=== PATIENT | female | born 1980 | race Caucasian/White ===

== ENCOUNTER 2017-09-18 20:20 | Emergency (ER) | payer OTHER, SELFPAY ==
--- NOTE | 2017-09-18 20:57 | RAD ---
AP CHEST: History: Cough, difficulty breathing. Comparison: None. IMPRESSION: No acute cardiopulmonary abnormality. COMMENTS: Lungs are clear. Cardiomediastinal silhouette is within normal limits. No acute osseous abnormality. POS: [facility]
[2017-09-18] MEDS ORDERED: Naproxen 500 MG TAB ONE (22:34)
== END 2017-09-18 23:33 | disposition home or self-care (01) ==
LOC: ERS 20:20
DX: J06.9 Acute upper respiratory infection, unspecified (principal); R06.2 Wheezing
CPT/HCPCS: 71010; 94640; J7620

== ENCOUNTER 2018-05-12 04:44 | Emergency (ER) | payer OTHER, SELFPAY ==
[2018-05-12] MEDS ORDERED: Promethazine HCl 25 MG/ML VIAL ONE (05:00)
[2018-05-12] MEDS ORDERED: diphenhydrAMINE 50 MG/ML VIAL ONE ×2 (05:00→05:56)
[2018-05-12 05:41] LABS: ALT (SGPT) 12 U/L (8-55); AST (SGOT) 16 U/L (5-34); Alkaline Phosphatase 51 U/L (40-150); Anion Gap 8 mmol/L (10-20); BUN (Urea Nitrogen) 15 mg/dL (7.0-18.7); Bilirubin, Total 0.5 mg/dL (0.2-1.2); Calc. Creatinine Clearance 0 mL/min (70-130); Calcium 8.9 mg/dL (7.8-10.44); Carbon Dioxide 26 mmol/L (22-29); Chloride 110 mmol/L (98-107); Estimated GFR-MDRD Greater than 90; Globulin 2.7 g/dL (2.4-3.5); Glucose 102 mg/dL (70-105); Potassium 3.9 mmol/L (3.5-5.1); Protein, Total 6.7 g/dL (6.0-8.3); Sodium 140 mmol/L (136-145)
[2018-05-12 05:46] LABS: CKMB 1.3 ng/mL (0-6.6); Troponin I Less than 0.010 ng/mL (< 0.028)
[2018-05-12 05:47] LABS: #Basophils 0.1 thou/uL (0.0-0.2); #Eosinphils 0.1 thou/uL (0.0-0.7); #Lymphocytes 1.7 thou/uL (1.20-3.40); #Monocytes 0.6 thou/uL (0.11-0.59); #Neutrophils 1.6 thou/uL (1.40-6.50); %Basophils 1.4 % (0.0-1.0); %Eosinophils 3.6 % (0.0-10.0); %Lymphocytes 42.3 % (21.0-51.0); %Monocytes 13.4 % (0.0-10.0); %Neutrophils 39.4 % (42.0-75.0); Hemoglobin 8.7 g/dL (12.0-16.0); MDiff Complete? YES; Mean Corpuscular HGB CONC 31.4 g/dL (32.0-36.0); Mean Corpuscular Hemoglobin 20.7 pg (27.0-31.0); Mean Corpuscular Volume 65.8 fL (78.0-98.0); Mean Platelet Volume 9.1 fL (7.4-10.4); Microcytosis SLIGHT = 6-15 cells (100X) (0-5/hpf); PLT Morphology Comment Appears Decreased; Platelet Count 115 thou/uL (130-400); RBC Distribution Width 18.7 % (11.5-14.5); Red Blood Cell (RBC) Count 4.23 mill/uL (4.20-5.40); White Blood Cell (WBC) Count 4.1 thou/uL (4.8-10.8)
[2018-05-12] MEDS ORDERED: Famotidine 20 MG TAB ONE (05:57)
[2018-05-12 06:28] LABS: Iron 16 ug/dL (50-170); Iron Binding Capacity, Total 526 mcg/dL (265-497)
[2018-05-12] MEDS ORDERED: methylPREDNISolone Sod Succ/PF 125 MG/2 ML VIAL ONE (07:26)
[2018-05-12] MEDS ORDERED: MAGNESIUM IVPB SCH (07:45)
[2018-05-12] MEDS ORDERED: ADMIXTURE FEE IVPB SCH (07:45)
[2018-05-12] MEDS ORDERED: NS IVPB SCH (07:45)
== END 2018-05-12 08:46 | disposition home or self-care (01) ==
LOC: ERS 04:44
DX: G43.909 Migraine, unspecified, not intractable, without status migrainosus (principal); D50.9 Iron deficiency anemia, unspecified
CPT/HCPCS: 36415; 80053; 82553; 82728; 83540; 83550; 84484; 85025; 93005; 96365; 96367; 96375; 96376; J1200; J2550; J2930; J3475

== ENCOUNTER 2018-07-14 17:25 | Emergency (ER) | payer SELFPAY | END 2018-07-14 19:06 | disposition home or self-care (01) | LOC: ERS 17:25 | DX: S40.012A Contusion of left shoulder, initial encounter (principal); S40.011A Contusion of right shoulder, initial encounter; R51 Headache; V64.5XXA Driver of heavy transport vehicle injured in collision with heavy transport vehicle or bus in traffic accident, initial encounter | CPT/HCPCS: 99283 ==

== ENCOUNTER 2018-12-24 08:18 | Emergency (ER) | payer SELFPAY ==
[2018-12-24 09:21] LABS: Bilirubin Negative (Negative); Blood, Urine Negative (Negative); Clarity CLEAR (Clear); Glucose, Urine (Dipstick) Negative (Negative); Leukocyte Negative (Negative); Nitrite Negative (Negative); Protein, Urine (Dipstick) Negative (Neg-Trace); Specific Gravity, Urine 1.011 (1.002-1.036)
[2018-12-24 09:22] LABS: Pregnancy Test - Urine (BHCG) Negative (Negative); Pregu Control Background? CLEAR/WHITE (CLR/WHITE); Pregu Control Bar Appear? YES (CONTROL BAR); Specific Gravity 1.011 (1.002-1.036)
[2018-12-26 23:40] LABS: Chlamydia by PCR Not Detected (NotDetected); GC by PCR Not Detected (NotDetected)
== END 2018-12-24 09:40 | disposition home or self-care (01) ==
LOC: ERS 08:18
DX: N89.8 Other specified noninflammatory disorders of vagina (principal); F32.9 Major depressive disorder, single episode, unspecified; Z87.891 Personal history of nicotine dependence
CPT/HCPCS: 81003; 81025; 87480; 87491; 87510; 87591; 87660; 99284

== ENCOUNTER 2019-05-14 20:56 | Emergency (ER) | payer BC ==
[~2019-05-14 20:56] MED LIST: ISOVUE-370 76%-LOCM 1 ML ONE
[2019-05-14 21:33] LABS: #Eosinphils 0.5 thou/uL (0.0-0.7); #Lymphocytes 1.6 thou/uL (1.20-3.40); #Monocytes 0.7 thou/uL (0.11-0.59); #Neutrophils 4.8 thou/uL (1.40-6.50); %Basophils 0.3 % (0.0-1.0); %Eosinophils 7.1 % (0.0-10.0); %Lymphocytes 20.8 % (21.0-51.0); %Monocytes 8.5 % (0.0-10.0); %Neutrophils 63.3 % (42.0-75.0); Hemoglobin 10.3 g/dL (12.0-16.0); Mean Corpuscular HGB CONC 30.1 g/dL (32.0-36.0); Mean Corpuscular Hemoglobin 20.6 pg (27.0-31.0); Mean Corpuscular Volume 68.2 fL (78.0-98.0); Mean Platelet Volume 9.4 fL (7.4-10.4); Platelet Count 309 thou/uL (130-400); RBC Distribution Width 22.8 % (11.5-14.5); White Blood Cell (WBC) Count 7.6 thou/uL (4.8-10.8)
[2019-05-14 21:45] LABS: Bilirubin Negative (Negative); Blood, Urine Negative (Negative); Clarity Clear (Clear); Glucose, Urine (Dipstick) Normal (Negative); Leukocyte Negative Leu/uL (Negative); Nitrite Negative (Negative); Protein, Urine (Dipstick) 20 mg/dL (Neg-Trace); Urobilinogen 3 mg/dL (Less than 2)
[2019-05-14 21:46] LABS: Pregnancy Test - Urine (BHCG) Negative (Negative); Pregu Control Background? CLEAR/WHITE (CLR/WHITE); Pregu Control Bar Appear? YES (CONTROL BAR); Specific Gravity 1.038 (1.002-1.036)
[2019-05-14 21:54] LABS: ALT (SGPT) 10 U/L (8-55); AST (SGOT) 16 U/L (5-34); Albumin 4.4 g/dL (3.5-5.0); Alkaline Phosphatase 66 U/L (40-150); Anion Gap 15 mmol/L (10-20); BUN (Urea Nitrogen) 18 mg/dL (7.0-18.7); Bilirubin, Total 0.5 mg/dL (0.2-1.2); Calc. Creatinine Clearance 0 mL/min (70-130); Calcium 9.4 mg/dL (7.8-10.44); Carbon Dioxide 21 mmol/L (22-29); Chloride 104 mmol/L (98-107); Estimated GFR-MDRD 90; Globulin 3.5 g/dL (2.4-3.5); Glucose 96 mg/dL (70-105); Lipase 22 U/L (8-78); Potassium 3.8 mmol/L (3.5-5.1); Protein, Total 7.9 g/dL (6.0-8.3); Sodium 136 mmol/L (136-145)
[2019-05-14] MEDS ORDERED: Morphine 4 MG/ML VIAL ONE ×2 (22:31→23:37)
[2019-05-14] MEDS ORDERED: Ondansetron PF 4 MG/2 ML Vial ONE (23:01)
--- NOTE | 2019-05-14 23:31 | ULT ---
PELVIC ULTRASOUND: 05/14/2019 HISTORY: Right lower quadrant pain. COMPARISON: None. TECHNIQUE: Multiplanar cordero-scale sonographic imaging of the pelvis obtained with transabdominal imaging. The o varies are assessed with color-flow and spectral analysis. FINDINGS: The uterus measures 8.4 x 3.9 x 4.6 cm. The left ovary measures 2.4 x 1.8 x 1.5 cm, and the right ov harshal measures 3.4 x 2.8 x 3.2 cm. The ovaries demonstrate normal blood flow without evidence for mass . No free fluid in the pelvis. The endometrial stripe is not well defined and thus is difficult to measure. There is no evidence fo r endometrial thickening, however. IMPRESSION: Grossly unremarkable pelvic ultrasound. POS: [facility]
--- NOTE | 2019-05-15 00:12 | CT ---
CT ABDOMEN AND PELVIS: 05/14/2019 HISTORY: Right lower quadrant pain. COMPARISON: None. TECHNIQUE: Axial CT imaging at 5 mm intervals, from the lung bases through the pubic symphysis, with IV and oral contrast. Coronal reformatted imaging obtained. FINDINGS: The imaged lung bases are unremarkable. No free intraperitoneal air or fluid is seen. The liver, spleen, gallbladder, pancreas, adrenal glands, and kidneys demonstrate no acute findings. Small, nonspecific hypodensity within the spleen noted, measuring 9-10 mm. Postoperative suture lance e associated with the stomach and proximal small bowel. There is significant stool within the colon, particularly in the region of the sigmoid colon and desc ending colon. The appendix is unremarkable. There is no evidence for bowel obstruction. Vascular structures of th e abdomen/pelvis appear grossly unremarkable. There is no lymphadenopathy seen within the abdomen/pe lvis. No worrisome lytic or blastic bone lesions are identified. IMPRESSION: No acute findings. POS: [facility]
[2019-05-15] MEDS ORDERED: Thiamine 100 MG TAB ONE (00:18)
== END 2019-05-15 01:30 | disposition home or self-care (01) ==
LOC: ERS 20:56
DX: K59.00 Constipation, unspecified (principal); R10.31 Right lower quadrant pain; F32.9 Major depressive disorder, single episode, unspecified; F90.9 Attention-deficit hyperactivity disorder, unspecified type; Z87.891 Personal history of nicotine dependence; Z79.899 Other long term (current) drug therapy
CPT/HCPCS: 36415; 74177; 76856; 80053; 81003; 81025; 83690; 85025; 93976; 96361; 96372; 96374; J2270; J2405; J3411; Q9966

== ENCOUNTER 2019-12-04 09:44 | Emergency (ER) | payer SELFPAY ==
[2019-12-04 11:10] LABS: Bilirubin Negative (Negative); Blood, Urine Negative (Negative); Clarity Clear (Clear); Glucose, Urine (Dipstick) Normal (Negative); Leukocyte Negative Leu/uL (Negative); Nitrite Negative (Negative); Protein, Urine (Dipstick) Negative (Neg-Trace); Urobilinogen Normal mg/dL (Less than 2)
[2019-12-04 11:13] LABS: Pregnancy Test - Urine (BHCG) Negative (Negative); Pregu Control Background? CLEAR/WHITE (CLR/WHITE); Pregu Control Bar Appear? YES (CONTROL BAR); Specific Gravity 1.024 (1.002-1.036)
[2019-12-04 12:27] LABS: #Eosinphils 0.1 thou/uL (0.0-0.7); #Lymphocytes 1.5 thou/uL (1.20-3.40); #Monocytes 0.6 thou/uL (0.11-0.59); #Neutrophils 2.6 thou/uL (1.40-6.50); %Basophils 0.1 % (0.0-1.0); %Eosinophils 2.5 % (0.0-10.0); %Lymphocytes 32.1 % (21.0-51.0); %Monocytes 11.7 % (0.0-10.0); %Neutrophils 53.5 % (42.0-75.0); Hemoglobin 8.4 g/dL (12.0-16.0); Mean Corpuscular HGB CONC 29.6 g/dL (32.0-36.0); Mean Corpuscular Volume 67.6 fL (78.0-98.0); Mean Platelet Volume 9.3 fL (7.4-10.4); Platelet Count 220 thou/uL (130-400); RBC Distribution Width 16.9 % (11.5-14.5); Red Blood Cell (RBC) Count 4.18 mill/uL (4.20-5.40); White Blood Cell (WBC) Count 4.8 thou/uL (4.8-10.8)
[2019-12-04 12:43] LABS: Hypochromia MODERATE=16-30 cells (100X) (0-5/hpf); MDiff Complete? YES; Microcytosis MODERATE=15-30 cells (100X) (0-5/hpf); Ovalocytes MODERATE= 6-15 cells (100X) (0-1/hpf); Platelet Morphology Comment Appears Adequate; Polychromasia SLIGHT = 2-3 cells (100X) (0-2/hpf); Reflex for Review?? NO
[2019-12-04 12:49] LABS: ALT (SGPT) 9 U/L (8-55); AST (SGOT) 14 U/L (5-34); Albumin 3.9 g/dL (3.5-5.0); Alkaline Phosphatase 63 U/L (40-110); Anion Gap 10 mmol/L (10-20); BUN (Urea Nitrogen) 12 mg/dL (7.0-18.7); Bilirubin, Total 0.3 mg/dL (0.2-1.2); Calc. Creatinine Clearance 0 mL/min (70-130); Calcium 8.4 mg/dL (7.8-10.44); Carbon Dioxide 24 mmol/L (22-29); Chloride 107 mmol/L (98-107); Estimated GFR-MDRD Greater than 90; Globulin 2.6 g/dL (2.4-3.5); Glucose 87 mg/dL (70-105); Potassium 4.3 mmol/L (3.5-5.1); Protein, Total 6.5 g/dL (6.0-8.3); Sodium 137 mmol/L (136-145)
[2019-12-05 23:42] LABS: Chlamydia by PCR Not Detected (NotDetected); GC by PCR Not Detected (NotDetected)
== END 2019-12-04 14:06 | disposition home or self-care (01) ==
LOC: ERS 09:44
DX: N76.0 Acute vaginitis (principal); F32.9 Major depressive disorder, single episode, unspecified; D64.9 Anemia, unspecified; Z87.891 Personal history of nicotine dependence; G43.909 Migraine, unspecified, not intractable, without status migrainosus
CPT/HCPCS: 36415; 80053; 81003; 81025; 84443; 85025; 87480; 87491; 87510; 87591; 87660; 93005

== ENCOUNTER 2020-06-14 15:39 | Inpatient (IN) | payer BC, OTHER ==
[2020-06-14 15:58] LABS: #Basophils 0.1 thou/uL (0.0-0.2); #Eosinphils 0.3 thou/uL (0.0-0.7); #Lymphocytes 2.3 thou/uL (1.20-3.40); #Monocytes 0.6 thou/uL (0.11-0.59); #Neutrophils 3.7 thou/uL (1.40-6.50); %Basophils 1.2 % (0.0-1.0); %Eosinophils 3.8 % (0.0-10.0); %Monocytes 8.6 % (0.0-10.0); %Neutrophils 53.4 % (42.0-75.0); Hemoglobin 15.2 g/dL (12.0-16.0); Mean Corpuscular HGB CONC 35.1 g/dL (32.0-36.0); Mean Corpuscular Hemoglobin 33.6 pg (27.0-31.0); Mean Corpuscular Volume 95.7 fL (78.0-98.0); Mean Platelet Volume 9.3 fL (7.4-10.4); Platelet Count 193 thou/uL (130-400); RBC Distribution Width 11.1 % (11.5-14.5); Red Blood Cell (RBC) Count 4.53 mill/uL (4.20-5.40); White Blood Cell (WBC) Count 6.9 thou/uL (4.8-10.8)
[2020-06-14 16:03] LABS: BHCG - Serum Negative (NEGATIVE); Pregs Control Background? CLEAR/WHITE (CLR/WHITE); Pregs Control Bar Appear? YES (CONTROL BAR)
[2020-06-14 16:17] LABS: ALT (SGPT) 20 U/L (8-55); AST (SGOT) 20 U/L (5-34); Albumin 4.3 g/dL (3.5-5.0); Alkaline Phosphatase 81 U/L (40-110); Anion Gap 9 mmol/L (10-20); BUN (Urea Nitrogen) 10 mg/dL (7.0-18.7); Bilirubin, Total 0.3 mg/dL (0.2-1.2); Calc. Creatinine Clearance 0 mL/min (70-130); Calcium 8.9 mg/dL (7.8-10.44); Carbon Dioxide 27 mmol/L (22-29); Chloride 107 mmol/L (98-107); Estimated GFR-MDRD 71; Glucose 154 mg/dL (70-105); Potassium 3.8 mmol/L (3.5-5.1); Protein, Total 7.3 g/dL (6.0-8.3); Sodium 139 mmol/L (136-145)
[2020-06-14 17:20] LABS: Bilirubin Negative (Negative); Blood, Urine Negative (Negative); Clarity Clear (Clear); Glucose, Urine (Dipstick) Normal (Negative); Ketone, Urine Negative (Negative); Leukocyte Negative Leu/uL (Negative); Nitrite Negative (Negative); Protein, Urine (Dipstick) Negative (Neg-Trace); Specific Gravity, Urine 1.017 (1.002-1.036); Urobilinogen 3 mg/dL (Less than 2)
[2020-06-14 17:34] LABS: Amphetamine Not Detected (NotDetected); Barbiturates Screen Not Detected (NotDetected); Benzodiazepine Screen Not Detected (NotDetected); Cocaine Metabolite Screen Not Detected (NotDetected); Medtox Control Line Valid? VALID (VALID); Medtox Reader # READER 4; Methadone Not Detected (NotDetected); Methamphetamine Not Detected (NotDetected); Opiate Screen Not Detected (NotDetected); Oxycodone Screen Not Detected (NotDetected); Phencyclidine (PCP) Not Detected (NotDetected); THC/Cannabinoid Screen Not Detected (NotDetected); Tricyclic Screen Not Detected (NotDetected)
--- NOTE | 2020-06-14 18:36 | CT ---
CT BRAIN 06/14/20 PROVIDED CLINICAL HISTORY: Altered mental status. FINDINGS: The ventricular system appears normal in size and morphology. There is no evidence for intracranial h emorrhage or mass effect. The extracranial soft tissues and osseous structures demonstrate an unremar kable CT appearance. IMPRESSION: No evidence for intracranial hemorrhage or mass effect. POS: [facility]
[2020-06-14] MEDS ORDERED: Morphine 4 MG/ML VIAL ONE (21:28)
[2020-06-15] MEDS ORDERED: Ondansetron PF 4 MG/2 ML Vial IVP PRN ×2 (00:08→00:17)
[2020-06-15] MEDS ORDERED: Ondansetron ODT 4 MG TAB SL PRN (00:08)
[2020-06-15] MEDS ORDERED: Enalaprilat Dihydrate 1.25 MG/ML VIAL SLOW IVP PRN (00:13)
[2020-06-15] MEDS ORDERED: Labetalol HCl 100 MG/20 ML VIAL SLOW IVP PRN (00:13)
[2020-06-15] MEDS ORDERED: hydrALAZINE 20 MG/ML VIAL SLOW IVP PRN (00:13)
[2020-06-15] MEDS ORDERED: Sodium Chloride 0.9% 1,000 ML IV SCH (00:15)
[2020-06-15] MEDS ORDERED: Acetaminophen 325 MG TAB PO PRN (00:17)
[2020-06-15] MEDS ORDERED: Promethazine HCl 12.5 MG in Sodium Chloride 0.9% 50 ML IVPB PRN (00:17)
--- NOTE | 2020-06-15 00:23 | PDOC.HHP ---
Hospitalist HPI - History of Present Illness Syncope History of Present Illness: Patient is a 39 year old female with PMH migraines, gastric bypass, bipolar disorder who presented to ED for vaginal bleeding, syncope, global weakness but especially in LLE. She reports signficant weakness worsening over time, especially in the left leg, she is weak and cannot keep extremities elevated for long, cannot keep eyes open, unable to roll over without assistance. She has seen Dr Wells for this and had MRI last week of brain. She had syncopal episode today in car on way over here. She reports vaginal bleeding x 1 day, 10-12 large clots passed and ED attempted to examine but unable to see much due to blood. She reports periods are becoming more severe every month. She was dizzy yesterday. She also reports back pain, partially relieved by morphine in ED. In ED, lab workup unremarkable, CT head without acute findings, old records here reveal MRI brain on 06/05/[address] Wells which revealed T1 marrow signal hypointensity in calvarium concerning for marrow infiltrative process. Dr Gray called and will consult with us, recommended MRI of the whole spine which has been ordered. Hospitalist ROS - Review of Systems Constitutional: denies: fever, chills, sweats, weakness, malaise, other Eyes: denies: pain, vision change, conjunctivae inflammation, eyelid inflammation, redness, other ENT: denies: ear pain, ear discharge, nose pain, nose discharge, nose congestion , mouth pain, mouth swelling, throat pain, throat swelling, other Respiratory: denies: cough, dry, shortness of breath, hemoptysis, SOB with excertion, pleuritic pain, sputum, wheezing, other Cardiovascular: denies: chest pain, palpitations, orthopnea, paroxysmal noc. dyspnea, edema, light headedness, other Gastrointestinal: reports: other (vaginal bleeding) Musculoskeletal: reports: back pain. denies: neck pain, shoulder pain, arm pain , hand pain, leg pain, foot pain, other Skin: denies: rash, lesions, sneha, bruising, other Neurological: reports: weakness, numbness, other (lle weakness, syncope, global weakness, loss sensation LLE, cannot keep eyelids open and weak) All other systems reviewed; all pertinent +/- noted in HPI/Subj - Medication Medications: Strattera Sat Jun 14, 2020 16:15 ROSALIA Shelby Nicole capsule : Strength - 10 mg : ORAL Patient Dose: UNKNOWN. LaMICtal Sat Jun 14, 2020 16:15 ROSALIA Shelby Nicole tablet : Strength - 100 mg : ORAL Patient Dose: UNKNOWN. sertraline Sat Jun 14, 2020 16:16 ROSALIA Shelby Nicole tablet : Strength - 100 mg : ORAL Patient Dose: 100 mg Oral once a day. Hospitalist History - Past Medical History Other Medical History: MIGRAINES. - Past Surgical History Other Surgical History: GASTRIC BYPASS (2015), BREAST AUGMENTATION (2004), TONSILECTOMY (2008). - Family History Family History: reports: no pertinent history - Social History Smoking Status: Former smoker Alcohol: reports: Rare Drugs: reports: none - Exam General Appearance: NAD, awake alert Eye: PERRL, anicteric sclera ENT: normocephalic atraumatic, no oropharyngeal lesions, moist mucosa Neck: supple, symmetric, no JVD, no thyromegaly, no lymphadenopathy, no carotid bruit Heart: RRR, no murmur, no gallops, no rubs, normal peripheral pulses Respiratory: CTAB, no wheezes, no rales, no ronchi, normal chest expansion, no tachypnea, normal percussion Gastrointestinal: soft, non-tender, non-distended, normal bowel sounds, no palpable masses, no hepatomegaly, no splenomegaly, no bruit Extremities: no cyanosis, no clubbing, no edema Skin: normal turgor, no lesions, no rashes Neurological - other findings: global weakness, 2-3/5 strength in all extremities, sensory reduced LLE Musculoskeletal - other findings: some early contractures in feet Psychiatric: normal affect, normal behavior, A&O x 3 Hospitalist Results - Labs Result Diagrams: 06/14/20 15:50 06/14/20 15:50 Lab results: WBC 6.9 thou/uL (4.8-10.8) 06/14/20 15:50 Hgb 15.2 g/dL (12.0-16.0) 06/14/20 15:50 Hct 43.4 % (36.0-47.0) 06/14/20 15:50 MCV 95.7 fL (78.0-98.0) 06/14/20 15:50 Plt Count 193 thou/uL (130-400) 06/14/20 15:50 Neutrophils % 53.4 % (42.0-75.0) 06/14/20 15:50 Sodium 139 mmol/L (136-145) 06/14/20 15:50 Potassium 3.8 mmol/L (3.5-5.1) 06/14/20 15:50 Chloride 107 mmol/L (98-107) 06/14/20 15:50 Carbon Dioxide 27 mmol/L (22-29) 06/14/20 15:50 BUN 10 mg/dL (7.0-18.7) 06/14/20 15:50 Creatinine 0.88 mg/dL (0.6-1.1) 06/14/20 15:50 Glucose 154 mg/dL (70-105) H 06/14/20 15:50 Calcium 8.9 mg/dL (7.8-10.44) 06/14/20 15:50 Total Bilirubin 0.3 mg/dL (0.2-1.2) 06/14/20 15:50 AST 20 U/L (5-34) 06/14/20 15:50 ALT 20 U/L (8-55) 06/14/20 15:50 Alkaline Phosphatase 81 U/L (40-110) 06/14/20 15:50 Troponin I 0.010 ng/mL (< 0.028) 06/14/20 15:50 Serum Total Protein 7.3 g/dL (6.0-8.3) 06/14/20 15:50 Albumin 4.3 g/dL (3.5-5.0) 06/14/20 15:50 Urine Ketones Negative mg/dL (Negative) 06/14/20 17:05 Urine Blood Negative (Negative) 06/14/20 17:05 Urine Nitrite Negative (Negative) 06/14/20 17:05 Ur Leukocyte Esterase Negative Wing/uL (Negative) 06/14/20 17:05 Additional comment: VITAL SIGNS Sat Jun 14, 2020 22:36 ROSALIA Shelby Nicole BP: 102/59 Pulse: 66 Resp: 18 Pain: 7 O2 sat: 98 on (Room Air) Time: 06/14/2020 22:36. labs, imaging report, ED documents reviewed Hospitalist H&P A/P - Plan Plan: Patient is a 39 year old female with PMH migraines, gastric bypass, bipolar disorder who presented to ED for vaginal bleeding, syncope, global weakness but especially in LLE. She reports signficant weakness worsening over time, especially in the left leg , she is weak and cannot keep extremities elevated for long, cannot keep eyes open, unable to roll over without assistance. She has seen Dr Wells for this and had MRI last week of brain. She had syncopal episode today in car on way over here. She reports vaginal bleeding x 1 day, 10-12 large clots passed and ED attempted to examine but unable to see much due to blood. She reports periods are becoming more severe every month. She was dizzy yesterday. She also reports back pain, partially relieved by morphine in ED. In ED, lab workup unremarkable, CT head without acute findings, old records here reveal MRI brain on 06/05/[address] Wells which revealed T1 marrow signal hypointensity in calvarium concerning for marrow infiltrative process. Dr Gray called and will consult with us, recommended MRI of the whole spine which has been ordered. patient story includes global weaknes, LLE most of all, unable to keep eyes open, weak, fainted, concerning for things such as MS, myasthenia gravis - admit to stroke unit - stroke order set - neurology consult placed - some basic nutrition labs and RPR/BUFFY sent, nutrition consult, check PO4 in AM as well as iron panel and peripheral smear - start statin, hold ASA and lovenox due to vaginal bleeding, SCD for DVt ppx # syncope - suspect due to neurologic exam and weakness, rule out causes as above, check echocardiogram # vaginal bleeding - noted, ED pelvic exam with bleeding and not able to visualize anything of significance, monitor here, will hold lovenox and ASA pending neurology workup - reports periods becoming more severe every month, will order coagulation labs and consider hematology consult in AM based on results # reported AKASH - will also order iron studies and a peripheral smear # bipolar disorder - continue home meds # history of gastric bypass - order diet consult, nutrition labs DVT ppx - SCD GI ppx full code
[2020-06-15] MEDS ORDERED: Aspirin Chewable 81 MG TAB PO SCH (00:30)
[2020-06-15] MEDS ORDERED: Lorazepam 2 MG/ML VIAL SLOW IVP PRN (00:38)
[2020-06-15] MEDS: Morphine 4 MG/ML VIAL SLOW IVP PRN ×4 (00:47→20:30)
[2020-06-15 01:11] VITALS: BMI 33.7
[2020-06-15 05:41] LABS: Iron 86 ug/dL (50-170); Iron Binding Capacity, Total 259 mcg/dL (265-497)
[2020-06-15 05:42] LABS: Anion Gap 10 mmol/L (10-20); BUN (Urea Nitrogen) 9 mg/dL (7.0-18.7); Calc. Creatinine Clearance 186 mL/min (70-130); Calcium 7.8 mg/dL (7.8-10.44); Carbon Dioxide 22 mmol/L (22-29); Cardiac Risk 4.9 (Less than 4.5); Chloride 112 mmol/L (98-107); Cholesterol 147 mg/dl (< 200 Desired); Estimated GFR-MDRD Greater than 90; Glucose 91 mg/dL (70-105); HDL Cholesterol 30 mg/dL (>60 Neg Risk); LDL Cholesterol, Calculated 81 mg/dL; Magnesium 1.9 mg/dL (1.6-2.6); Potassium 3.7 mmol/L (3.5-5.1); Sodium 140 mmol/L (136-145); Triglycerides 178 mg/dL (Less than 150)
[2020-06-15 05:44] LABS: Iron 87 ug/dL (50-170); Iron Binding Capacity, Total 260 mcg/dL (265-497); Phosphorus 2.6 mg/dL (2.3-4.7)
[2020-06-15 05:59] LABS: Syphilis Antibody Nonreactive (Nonreactive); Syphilis Antibody Index 0.03 S/CO (<1.00 Non-Reactive)
[2020-06-15 06:02] LABS: INR-International Normal Ratio 1.1; Prothrombin Time 13.9 sec (12.0-14.7)
[2020-06-15 06:03] LABS: PTT 36.3 sec (22.9-36.1)
[2020-06-15 06:07] LABS: Ferritin 97.19 ng/mL (10-291)
[2020-06-15] MEDS: HYDROcodone/Acetaminophen 5/325 mg Tablet PO PRN ×2 (06:13→12:31)
[2020-06-15 06:31] LABS: Band 5 % (5-11); Eosinophils 1 % (0-10); Hemoglobin 13.3 g/dL (12.0-16.0); Lymphocytes 38 % (21-51); MDiff Complete? YES; Mean Corpuscular HGB CONC 34.4 g/dL (32.0-36.0); Mean Corpuscular Hemoglobin 33.2 pg (27.0-31.0); Mean Corpuscular Volume 96.5 fL (78.0-98.0); Monocytes 5 % (0-10); Neutrophil 51 % (42-75); Platelet Count 153 thou/uL (130-400); RBC Distribution Width 11.1 % (11.5-14.5); Red Blood Cell (RBC) Count 4.01 mill/uL (4.20-5.40); White Blood Cell (WBC) Count 4.7 thou/uL (4.8-10.8)
[2020-06-15] MEDS ORDERED: lamoTRIgine 25 MG TAB PO SCH ×2 (09:00→14:00)
[2020-06-15] MEDS ORDERED: Enoxaparin Sodium 40 MG/0.4 ML SYRINGE SC SCH (09:00)
[2020-06-15] MEDS ORDERED: ATOMOXETINE HCL 25 MG PO SCH (09:00)
[2020-06-15] MEDS ORDERED: Aspirin 81 mg Enteric Coated Tablet PO SCH (09:00)
[2020-06-15] MEDS: Polyethylene Glycol 3350 17 GM Packet PO SCH (10:21)
--- NOTE | 2020-06-15 12:32 | MRI ---
Exam: Thoracic spine MRI with and without contrast HISTORY: Arm and leg weakness. COMPARISON: None. FINDINGS: Diffuse T1 and T2 marrow signal hypointensity of the thoracic vertebra. Thoracic spine vertebral body height is maintained. No fracture. There is no evidence of pathologic enhancement of the vertebral bodies. No significant STIR hyperintensity to suggest vertebral body edema or ligamentous injury. Visualized mediastinum, lung parenchyma and solid organs do not demonstrate any acute abnormality. Throughout the thoracic spine, no significant neural foraminal narrowing. T3-T4: Minimal posterior disc bulge. No significant central canal stenosis. T6-T7: Minimal posterior disc bulge. No significant central canal stenosis. T8-T9: Central disc herniation does deform the thecal sac. There is mass effect and deformity of the thoracic cord. No cord signal abnormality. Mild to moderate central canal stenosis. The thoracic cord has a normal size and signal intensity. No cord expansion. No cord malacia. No abno rmal T2 hyperintensity in the cord. Conus medullaris terminates at the inferior aspect of T12. IMPRESSION: 1. No cord signal abnormality. 2. Diffuse T1 and T2 marrow signal hypointensity. Correlate for anemia. No abnormal STIR hyperintensi ty or pathologic enhancement to suggest a malignant or marrow infiltrative process.. Transcribed Date/Time: 06/15/2020 1:02 PM
--- NOTE | 2020-06-15 12:37 | MRI ---
MRI lumbar spine noncontrast: HISTORY: Leg weakness. COMPARISON: None. FINDINGS: Patient refused to undergo the postcontrast images. T1 and T2 marrow signal hypointensity in the visualized distal thoracic and lumbar spine. Small heman gioma at T12 and L5. Vertebral body heights are maintained. No fracture. No significant STIR hyperintensity to suggest ligamentous injury or vertebral body edema. Sagittal images demonstrate a small T2 hyperintense focus along the right aspect of S2 suggesting a T arlov cyst. Visualized solid organs and paraspinal muscles do not demonstrate any signal abnormality. Conus medullaris terminates at the inferior aspect of T12. T12-L1:Adequate disc hydration. No posterior disc abnormality. No significant central canal stenosis or significant neural foraminal narrowing. L1-L2:Adequate disc hydration. No posterior disc abnormality. No significant central canal stenosis o r significant neural foraminal narrowing. L2-L3:Adequate disc hydration. No posterior disc abnormality. No significant central canal stenosis o r significant neural foraminal narrowing. L3-L4:Adequate disc hydration. No posterior disc abnormality. No significant central canal stenosis o r significant neural foraminal narrowing. L4-L5:Adequate disc hydration. Broad-based disc bulge minimally flattens the ventral thecal sac. Disc material abuts but does not obscure either traversing L4 nerve root. Minimal central canal stenosis. Mild bilateral foraminal narrowing. L5-S1:Adequate disc hydration. No posterior disc abnormality. There is bilateral facet hypertrophy. N o significant central canal stenosis. Mild bilateral neural foraminal narrowing. IMPRESSION: 1. Diffuse T1 and T2 marrow signal hypointensity without STIR hyperintensity. Anemia is favored, rath er than a marrow infiltrative process. 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 3. No significant central canal stenosis or significant neural foraminal narrowing throughout the lum bar spine. Transcribed Date/Time: 06/15/2020 1:06 PM
--- NOTE | 2020-06-15 12:47 | MRI ---
Exam: MRI cervical spine without contrast HISTORY: Arm and leg weakness.. COMPARISON: None. FINDINGS: Patient refused to have the postcontrast sequences done. T1 and T2 marrow signal hypointensity of the cervical vertebra likely due to anemia. No significant S TIR hyperintensity. No fracture. Visualized brain parenchyma, cervicomedullary junction, cervical cord and the upper thoracic cord hav e a normal size and signal intensity. C2-C3: Adequate disc hydration. No posterior disc abnormality. No significant central canal stenosis or significant neural foraminal narrowing. C3-C4: Adequate disc hydration. No posterior disc abnormality. No significant central canal stenosis or significant neural foraminal narrowing. C4-C5: Adequate disc hydration. No posterior disc abnormality. No significant central canal stenosis or significant neural foraminal narrowing. C5-C6: Adequate disc hydration. Broad-based disc bulge abuts the thecal sac. Subarachnoid space is ma intained. Mild central canal stenosis. Patent bilateral neural foramina. C6-C7: Broad-based disc bulge abuts the thecal sac. Subarachnoid space is maintained. Mild central ca nal stenosis. Patent bilateral neural foramina. C7-T1: Adequate disc hydration. No posterior disc abnormality. No significant central canal stenosis or significant neural foraminal narrowing. IMPRESSION: 1. No significant central canal stenosis or significant neural foraminal narrowing throughout the cer vical spine. 2. No cord signal abnormality. 3. T1 and T2 marrow signal hypointensity without STIR hyperintensity. Correlate for anemia. Transcribed Date/Time: 06/15/2020 1:17 PM
[2020-06-15 13:44] LABS: SARS-CoV-2 MS2 Positive; SARS-CoV-2 N Gene Negative; SARS-CoV-2 S Gene Negative; SARS-CoV-2 by NAA Not Detected (NotDetected); SARS-CoV-2 orf1ab Negative
--- NOTE | 2020-06-15 19:26 | CON ---
DATE OF CONSULTATION: 06/15/2020 CONSULTING PHYSICIAN: Hospitalist Service. 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 PLAN: Lumbar puncture to look for evidence of inflammation. HISTORY OF PRESENT ILLNESS: Ms. Robles is a 39-year-old woman with a past history of migraine headaches and bipolar disorder. She, of late, has been complaining of cognitive decline and was worried that she had dementia. Yesterday, she reports developing left-sided weakness and numbness. She feels like there is some weakness on the right side too, but is not as severe. It involves both the face, arm, and leg. She had an MRI of the brain, which was normal. MRI of the spinal axis including cervical, thoracic, and lumbar was unremarkable other than a small disk bulge at L5-S1. She is complaining of lower back pain. She denies any recent illness. She has not run any fever. PAST MEDICAL HISTORY: As noted above. ALLERGIES: NONE. SOCIAL HISTORY: Unremarkable. FAMILY HISTORY: Positive for dementia. MEDICATIONS: List was reviewed. REVIEW OF SYSTEMS: Ten-system review of systems is otherwise unremarkable. PHYSICAL EXAMINATION: VITAL SIGNS: Stable. She is afebrile. HEENT: Pupils are equal and reactive. Conjunctivae clear. Oropharynx clear. Cranium, normocephalic and atraumatic. NECK: Supple. No lymphadenopathy. EXTREMITIES: No cyanosis or edema. SKIN: Clear. ABDOMEN: Soft, nontender. NEUROLOGIC: She was alert and cooperative, she was tearful, but has clear fluent speech. Cranial nerves were intact other than subjective decreased sensation to touch on the left side of the face. 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 The tone appeared to be symmetric. Sensation was subjectively decreased on the left side. Plantar responses were downgoing bilaterally. Gait was not tested. No abnormal movements were seen. LABORATORY STUDIES: Reviewed. IMAGING STUDIES: EKG, normal sinus rhythm. SUMMARY: A middle-aged woman with acute subjective neurologic deficits, but nothing remarkable on imaging. There is a low probability of infectious process that might account for this. Spinal tap could be done tomorrow to rule this out. Otherwise, I do not have anything to offer. Job ID: [id number]
[2020-06-15] MEDS ORDERED: Atorvastatin Calcium 40 MG TAB PO SCH (21:00)
[2020-06-16 05:29] LABS: #Basophils 0.1 thou/uL (0.0-0.2); #Eosinphils 0.2 thou/uL (0.0-0.7); #Lymphocytes 1.9 thou/uL (1.20-3.40); #Monocytes 0.5 thou/uL (0.11-0.59); #Neutrophils 2.9 thou/uL (1.40-6.50); %Basophils 1.2 % (0.0-1.0); %Eosinophils 4.4 % (0.0-10.0); %Lymphocytes 33.5 % (21.0-51.0); %Monocytes 9.5 % (0.0-10.0); %Neutrophils 51.5 % (42.0-75.0); Mean Corpuscular HGB CONC 34.3 g/dL (32.0-36.0); Mean Corpuscular Hemoglobin 32.2 pg (27.0-31.0); Mean Corpuscular Volume 93.9 fL (78.0-98.0); Mean Platelet Volume 9.5 fL (7.4-10.4); Platelet Count 173 thou/uL (130-400); Red Blood Cell (RBC) Count 4.34 mill/uL (4.20-5.40); White Blood Cell (WBC) Count 5.6 thou/uL (4.8-10.8)
[2020-06-16 05:53] LABS: Anion Gap 14 mmol/L (10-20); BUN (Urea Nitrogen) 10 mg/dL (7.0-18.7); Calc. Creatinine Clearance 178 mL/min (70-130); Calcium 8.4 mg/dL (7.8-10.44); Carbon Dioxide 21 mmol/L (22-29); Chloride 107 mmol/L (98-107); Estimated GFR-MDRD Greater than 90; Glucose 86 mg/dL (70-105); Magnesium 1.9 mg/dL (1.6-2.6); Potassium 3.9 mmol/L (3.5-5.1); Sodium 138 mmol/L (136-145)
[2020-06-16] MEDS: Polyethylene Glycol 3350 17 GM Packet PO SCH (08:49)
[2020-06-16] MEDS ORDERED: lamoTRIgine 100 MG TAB PO SCH (09:00)
[2020-06-16 15:12] VITALS: TEMP 98.6
--- NOTE | 2020-06-16 17:29 | PDOC.HOSPP ---
- Subjective Encounter Date: 06/16/20 Encounter Time: 08:00 Subjective: no overnight events. this morning, feeling better overall, can wiggle toes but LLE weakness persists. Pending further evaluation by neurology and possible lumbar puncture - Objective Vital Signs & Weight: Vital Signs (12 hours) Temp Pulse Pulse Pulse Pulse Resp BP 06/16/20 15:11 98.6 F 75 17 06/16/20 11:42 98.5 F 76 16 06/16/20 10:06 120/77 06/16/20 08:59 77 91 79 115/73 06/16/20 08:04 98.2 F 67 13 BP BP BP Pulse Ox 06/16/20 15:11 133/86 97 06/16/20 11:42 154/90 H 95 06/16/20 10:06 06/16/20 08:59 124/78 123/88 06/16/20 08:04 127/76 96 Weight Admit Weight 215 lb 11.2 oz Weight 215 lb 11.2 oz I&O: 06/15/20 06/16/20 06/17/20 06:59 06:59 06:59 Intake Total 624 120 Balance 624 120 Result Diagrams: 06/16/20 05:01 06/16/20 05:01 Hospitalist ROS - Review of Systems Constitutional: denies: chills, sweats Eyes: denies: vision change Cardiovascular: denies: chest pain, palpitations Gastrointestinal: denies: nausea, vomiting Genitourinary: denies: dysuria, incontinence, hematuria Musculoskeletal: reports: back pain. denies: neck pain, leg pain, foot pain Neurological: reports: weakness, numbness. denies: incoordination, change in speech - Medication Medications: Active Medications Generic Name Dose Route Start Last Admin Trade Name Freq PRN Reason Stop Dose Admin Hydrocodone Bitart/Acetaminophen 1 tab 06/15/20 00:17 06/15/20 12:31 [place] 5/325 PO 1 tab Q4H PRN Administration Moderate Pain (4-6) Atorvastatin Calcium 40 mg 06/15/20 21:00 06/15/20 20:36 Lipitor PO Not Given HS NIKKIE Fluvoxamine Maleate 25 mg 06/15/20 09:00 06/16/20 08:48 Luvox PO 25 mg DAILY NIKKIE Administration Lamotrigine 100 mg 06/16/20 09:00 06/16/20 08:50 Lamictal PO 100 mg DAILY NIKKIE Administration Morphine Sulfate 4 mg 06/15/20 00:17 06/15/20 20:30 Morphine SLOW IVP 4 mg Q4H PRN Administration Moderate to Severe Pain (4-10) Polyethylene Glycol 17 gm 06/15/20 09:00 06/16/20 08:49 Miralax PO 17 gm DAILY NIKKIE Administration Sertraline HCl 100 mg 06/15/20 09:00 06/16/20 08:50 Zoloft PO 100 mg DAILY NIKKIE Administration - Exam General Appearance: NAD, awake alert Eye: PERRL, anicteric sclera Neck: no JVD Heart: RRR, no murmur, no gallops, no rubs Respiratory: CTAB, no wheezes, no rales, no ronchi Gastrointestinal: soft, non-tender, non-distended, normal bowel sounds Extremities: no edema Neurological - other findings: LLE 3/5, sensation intact throughout, dorsiflexion and plantar flexion 4/5 Psychiatric: normal affect, normal behavior, A&O x 3 Hosp A/P - Plan #LLE weakness -exam and imaging inconsistent with stroke or lumbar radiculopathy -per neurology, may be psychogenic; no indication for lumbar puncture -patient endorses some improvement in strength this morning
[2020-06-16 18:11] VITALS: BP 154/99
--- NOTE | 2020-06-17 03:56 | DIS ---
DATE OF ADMISSION: 06/14/2020 DATE OF DISCHARGE: 06/16/2020 HOSPITAL COURSE: Ms. Robles is a 39-year-old female with a medical history of migraines, gastric bypass, and recently diagnosed bipolar disorder, who presented with general weakness, especially in the left lower extremity. Complete stroke workup was negative. Neurology was consulted and suggested the pain might have a psychogenic component. In addition, after reviewing her medication list, some of her medications side effects involve muscle weakness. The patient was advised to review these medications with the prescribing physician as an outpatient considering her presentation and the absence of a more likely etiology. On the day of discharge, the patient's general weakness significantly improved. However, left lower extremity weakness persisted. She was discharged home with followup appointments with the primary care physician and Neurology in addition to home health and physical therapy. PHYSICAL EXAMINATION: VITAL SIGNS: Blood pressure 133/86, pulse 75, respiratory rate 17, oxygen saturation 97% on room air, and temperature 98.6. GENERAL: Lying comfortably in bed. Awake and alert. HEENT: Normocephalic and atraumatic. CARDIAC: Regular rate and rhythm. No murmurs, gallops, or rubs. She was in normal sinus rhythm throughout her inpatient stay based on telemetry. LUNGS: Clear to auscultation bilaterally. No wheezing, rales, or rhonchi. GI: Soft, nontender, and nondistended. Normal bowel sounds. NEUROLOGIC: Strength was 5/5 throughout upper and lower extremities with the exception of the left lower extremity. The patient able to raise her leg above the bed, but without resistance. Dorsiflexion and plantar flexion 4/5. Sensation to light touch intact. Straight leg test negative. PSYCHIATRIC: Proper mood and affect. Alert and oriented x3. MEDICATION LIST: New medications, no new medications. Modified medications, no modified medications. Discontinued medications, no discontinued medications. Continued medications; 1. Fluvoxamine. 2. Lamotrigine. 3. Sertraline. 4. Atomoxetine. Job ID: [id number]
[2020-06-17 13:56] LABS: ANA Symphony (Qualitative) Negative (Negative); ANA Symphony (Quantitative) 0.2 Ratio (< 0.7 Negative); dsDNA IgG Antibody 0.5 IU/mL (<10 Negative)
== END 2020-06-16 19:40 | disposition home health service (06) | DRG 556 ==
LOC: ERS 15:39 → 2SE 22:06
PROVIDERS: ADMIT Internal Medicine; ATTEND Internal Medicine
DX: M62.81 Muscle weakness (generalized) (principal); F31.81 Bipolar II disorder; D50.0 Iron deficiency anemia secondary to blood loss (chronic); N93.9 Abnormal uterine and vaginal bleeding, unspecified; R55 Syncope and collapse; T50.915A Adverse effect of multiple unspecified drugs, medicaments and biological substances, initial encounter; G43.909 Migraine, unspecified, not intractable, without status migrainosus; Z98.84 Bariatric surgery status; Z87.891 Personal history of nicotine dependence; Z79.899 Other long term (current) drug therapy; Z90.49 Acquired absence of other specified parts of digestive tract
CPT/HCPCS: 36415; 51701; 70450; 72141; 72148; 72157; 80048; 80053; 80061; 80306; 81003; 82607; 82728; 82746; 83540; 83550; 83735; 84100; 84425; 84443; 84484; 84703; 85025; 85060; 85610; 85652; 85730; 86038; 86225; 86780; 86900; 86901; 87635; 93005; 93306; 96361; 96374; J2270; U0003

== ENCOUNTER 2020-10-15 21:11 | Emergency (ER) | payer BC ==
[2020-10-16 03:15] LABS: SARS-CoV-2 MS2 Positive; SARS-CoV-2 N Gene Negative; SARS-CoV-2 S Gene Negative; SARS-CoV-2 by NAA Not Detected (NotDetected); SARS-CoV-2 orf1ab Negative
== END 2020-10-15 22:05 | disposition home or self-care (01) ==
LOC: ERS 21:11
DX: R05 Cough (principal); R52 Pain, unspecified; R53.83 Other fatigue; R19.7 Diarrhea, unspecified; R53.81 Other malaise; Z20.828 Contact with and (suspected) exposure to other viral communicable diseases
CPT/HCPCS: 87635; 99283; U0003

== ENCOUNTER 2020-11-05 06:24 | Emergency (ER) | payer BC ==
[2020-11-05] MEDS ORDERED: Ketorolac Tromethamine 30 MG/ML VIAL ONE (06:38)
[2020-11-05] MEDS ORDERED: diphenhydrAMINE 50 MG/ML VIAL ONE (06:38)
[2020-11-05] MEDS ORDERED: Metoclopramide HCl 10 MG/2 ML VIAL ONE (06:38)
== END 2020-11-05 09:30 | disposition home or self-care (01) ==
LOC: ERS 06:24
DX: G43.909 Migraine, unspecified, not intractable, without status migrainosus (principal); Z79.899 Other long term (current) drug therapy
CPT/HCPCS: 96365; 96375; J1200; J1885; J2765

== ENCOUNTER 2021-01-03 17:04 | Emergency (ER) | payer BC ==
[~2021-01-03 17:04] MED LIST changes: -ISOVUE-370 76%-LOCM 1 ML ONE; +Iopamidol-370 76% 500 ML 1 ML ONE
[2021-01-03] MEDS ORDERED: Morphine 4 MG/ML VIAL ONE ×2 (17:42→20:47)
[2021-01-03] MEDS ORDERED: Ondansetron PF 4 MG/2 ML Vial ONE ×2 (17:42→20:47)
[2021-01-03 17:56] LABS: #Basophils 0.1 thou/uL (0.0-0.2); #Eosinphils 0.4 thou/uL (0.0-0.7); #Lymphocytes 1.7 thou/uL (1.20-3.40); #Monocytes 0.9 thou/uL (0.11-0.59); #Neutrophils 8.9 thou/uL (1.40-6.50); %Basophils 0.4 % (0.0-1.0); %Eosinophils 3.6 % (0.0-10.0); %Lymphocytes 14.1 % (21.0-51.0); %Monocytes 7.2 % (0.0-10.0); %Neutrophils 74.6 % (42.0-75.0); Hemoglobin 14.2 g/dL (12.0-16.0); Mean Corpuscular HGB CONC 32.6 g/dL (32.0-36.0); Mean Corpuscular Hemoglobin 30.3 pg (27.0-31.0); Mean Platelet Volume 8.6 fL (7.4-10.4); Platelet Count 221 thou/uL (130-400); RBC Distribution Width 11.5 % (11.5-14.5); White Blood Cell (WBC) Count 11.9 thou/uL (4.8-10.8)
[2021-01-03 18:17] LABS: ALT (SGPT) 13 U/L (8-55); AST (SGOT) 10 U/L (5-34); Albumin 4.2 g/dL (3.5-5.0); Alkaline Phosphatase 89 U/L (40-110); Anion Gap 12 mmol/L (10-20); BUN (Urea Nitrogen) 10 mg/dL (7.0-18.7); Bilirubin, Total 0.5 mg/dL (0.2-1.2); CK (CPK) 47 U/L (29-168); Calc. Creatinine Clearance 0 mL/min (70-130); Calcium 9.3 mg/dL (7.8-10.44); Carbon Dioxide 27 mmol/L (22-29); Chloride 100 mmol/L (98-107); Globulin 3.1 g/dL (2.4-3.5); Glucose 119 mg/dL (70-105); Potassium 4.1 mmol/L (3.5-5.1); Protein, Total 7.3 g/dL (6.0-8.3); Sodium 135 mmol/L (136-145)
[2021-01-03] MEDS ORDERED: Ketorolac Tromethamine 30 MG/ML VIAL ONE (18:30)
[2021-01-03 20:59] LABS: Bilirubin Negative (Negative); Blood, Urine Negative (Negative); Clarity Clear (Clear); Glucose, Urine (Dipstick) Normal (Negative); Ketone, Urine Negative (Negative); Leukocyte Negative Leu/uL (Negative); Nitrite Negative (Negative); Protein, Urine (Dipstick) 20 mg/dL (Neg-Trace); Urobilinogen 3 mg/dL (Less than 2)
[2021-01-03 21:00] LABS: Specific Gravity, Urine Greater than 1.060 (1.002-1.036)
== END 2021-01-03 21:50 | disposition home or self-care (01) ==
LOC: ERS 17:04
DX: K52.9 Noninfective gastroenteritis and colitis, unspecified (principal); Z87.891 Personal history of nicotine dependence; Z79.899 Other long term (current) drug therapy
CPT/HCPCS: 36415; 74177; 80053; 81003; 82550; 83605; 85025; 96374; 96375; 96376; J1885; J2270; J2405; Q9967

== ENCOUNTER 2021-01-04 13:13 | Emergency (ER) | payer BC ==
[2021-01-04] MEDS ORDERED: Acetaminophen 500 MG TAB ONE (13:40)
[2021-01-04] MEDS ORDERED: Piperacillin/Tazobactam 4.5 GM VIAL ONE (13:40)
[2021-01-04] MEDS ORDERED: Ondansetron PF 4 MG/2 ML Vial ONE (13:40)
[2021-01-04] MEDS ORDERED: Morphine 4 MG/ML VIAL ONE ×2 (13:40→14:32)
[2021-01-04 13:44] LABS: #Eosinphils 0.4 thou/uL (0.0-0.7); #Lymphocytes 1.8 thou/uL (1.20-3.40); #Monocytes 1.2 thou/uL (0.11-0.59); #Neutrophils 12.2 thou/uL (1.40-6.50); %Basophils 0.3 % (0.0-1.0); %Eosinophils 2.6 % (0.0-10.0); %Lymphocytes 11.5 % (21.0-51.0); %Monocytes 7.7 % (0.0-10.0); Hemoglobin 14.8 g/dL (12.0-16.0); Mean Corpuscular HGB CONC 33.5 g/dL (32.0-36.0); Mean Corpuscular Hemoglobin 31.1 pg (27.0-31.0); Mean Corpuscular Volume 92.9 fL (78.0-98.0); Mean Platelet Volume 8.8 fL (7.4-10.4); Platelet Count 246 thou/uL (130-400); RBC Distribution Width 11.5 % (11.5-14.5); Red Blood Cell (RBC) Count 4.76 mill/uL (4.20-5.40); White Blood Cell (WBC) Count 15.7 thou/uL (4.8-10.8)
[2021-01-04 14:13] LABS: ALT (SGPT) 12 U/L (8-55); AST (SGOT) 10 U/L (5-34); Alkaline Phosphatase 87 U/L (40-110); Anion Gap 15 mmol/L (10-20); BUN (Urea Nitrogen) 8 mg/dL (7.0-18.7); Bilirubin, Total 0.9 mg/dL (0.2-1.2); Calc. Creatinine Clearance 0 mL/min (70-130); Calcium 8.8 mg/dL (7.8-10.44); Carbon Dioxide 22 mmol/L (22-29); Chloride 101 mmol/L (98-107); Globulin 3.3 g/dL (2.4-3.5); Glucose 120 mg/dL (70-105); Protein, Total 7.3 g/dL (6.0-8.3); Sodium 134 mmol/L (136-145)
[2021-01-04 14:39] LABS: Actual Bicarbonate (HCO3v) 21 mEq/L (22-28); Analyzer IN Cardio ER; Base Excess -3.6 mEq/L (-2.0 to +3.0); Calcium, Ionized (venous) 1.02 mmol/L (1.16-1.32); Chloride (VBG) 104 mmol/L (98-106); Potassium (VBG) 3.88 mmol/L (3.70-5.30); Sodium 132.1 mmol/L (133-146); pH (venous) 7.37 (7.32-7.43)
[2021-01-04 15:08] LABS: Bilirubin Negative (Negative); Blood, Urine Negative (Negative); Clarity Clear (Clear); Glucose, Urine (Dipstick) Normal (Negative); Ketone, Urine Negative (Negative); Leukocyte Negative Leu/uL (Negative); Nitrite Negative (Negative); Protein, Urine (Dipstick) Negative (Neg-Trace)
[2021-01-04 15:12] LABS: Pregnancy Test - Urine (BHCG) Negative (Negative)
[2021-01-04 15:13] LABS: Pregu Control Background? CLEAR/WHITE (CLR/WHITE); Pregu Control Bar Appear? YES (CONTROL BAR)
[2021-01-04] MEDS ORDERED: Fentanyl 100 MCG/2 ML VIAL ONE ×2 (15:46→17:23)
[2021-01-04 16:34] LABS: SARS-CoV-2 NAA Rapid Test Not Detected (NotDetected)
== END 2021-01-04 18:36 | disposition short-term general hospital (02) ==
LOC: ERS 13:13
DX: A41.9 Sepsis, unspecified organism (principal); G89.18 Other acute postprocedural pain; R10.32 Left lower quadrant pain; R11.2 Nausea with vomiting, unspecified; Z87.891 Personal history of nicotine dependence
CPT/HCPCS: 0240U; 71045; 74177; 80053; 81003; 81025; 82805; 83605; 85025; 87040; 87086; 93005; 96365; 96374; 96375; 96376; J2270; J2405; J2543; J3010; Q9967

== ENCOUNTER 2022-03-23 09:17 | Emergency (ER) | payer BC ==
[2022-03-23] MEDS ORDERED: Iopamidol-370 76% 500 ML 1 ML ONE (09:21)
[2022-03-23] MEDS ORDERED: Ondansetron PF 4 MG/2 ML Vial ONE (09:46)
[2022-03-23 09:57] LABS: Hemoglobin 17.8 g/dL (12.0-16.0); Mean Corpuscular HGB CONC 34.9 g/dL (32.0-36.0); Mean Corpuscular Hemoglobin 33.4 pg (27.0-31.0); Mean Corpuscular Volume 95.8 fL (78.0-98.0); Red Blood Cell (RBC) Count 5.32 mill/uL (4.20-5.40); White Blood Cell (WBC) Count 3.9 thou/uL (4.8-10.8)
[2022-03-23 09:58] LABS: #Basophils 0.1 thou/uL (0.0-0.2); #Lymphocytes 0.8 thou/uL (1.20-3.40); #Monocytes 0.2 thou/uL (0.11-0.59); #Neutrophils 2.8 thou/uL (1.40-6.50); %Basophils 1.6 % (0.0-1.0); %Eosinophils 0.8 % (0.0-10.0); %Lymphocytes 21.5 % (21.0-51.0); %Monocytes 3.9 % (0.0-10.0); %Neutrophils 72.2 % (42.0-75.0); Mean Platelet Volume 8.6 fL (7.4-10.4); Platelet Count 170 thou/uL (130-400)
[2022-03-23] MEDS ORDERED: Ondansetron PF 4 MG/2 ML Vial IVP SCH (10:00)
[2022-03-23] MEDS ORDERED: Famotidine 40 MG/4 ML VIAL SLOW IVP SCH (10:00)
[2022-03-23 10:17] LABS: Anion Gap 21 mmol/L (10-20); BUN (Urea Nitrogen) 15 mg/dL (7.0-18.7); Calc. Creatinine Clearance 0 mL/min (70-130); Carbon Dioxide 17 mmol/L (22-29); Chloride 100 mmol/L (98-107); Potassium 3.5 mmol/L (3.5-5.1); Sodium 134 mmol/L (136-145)
[2022-03-23 10:18] LABS: ALT (SGPT) 16 U/L (8-55); AST (SGOT) 11 U/L (5-34); Albumin 4.9 g/dL (3.5-5.0); Alkaline Phosphatase 76 U/L (40-110); Bilirubin, Total 0.8 mg/dL (0.2-1.2); Calcium 9.9 mg/dL (7.8-10.44); Globulin 3.6 g/dL (2.4-3.5); Glucose 175 mg/dL (70-105); Lipase 22 U/L (8-78); Protein, Total 8.5 g/dL (6.0-8.3)
[2022-03-23] MEDS ORDERED: Promethazine HCl 25 MG/ML VIAL IVPB SCH (10:45)
[2022-03-23] MEDS ORDERED: Promethazine HCl 25 MG in Sodium Chloride 0.9% 50 ML IVPB SCH (11:00)
[2022-03-23 12:02] LABS: Acetaminophen Less than 10.0 mcg/mL (10.0-30.0); Alcohol Less than 10 mg/dL (Less than 10); Salicylate Less than 8.0 mg/dL (15.0-30.0)
[2022-03-23 14:46] LABS: Lactic Acid 1.7 mmol/L (0.5-2.2)
== END 2022-03-23 16:07 | disposition home or self-care (01) ==
LOC: ERS 09:17
DX: R19.7 Diarrhea, unspecified (principal); Z87.891 Personal history of nicotine dependence; Z79.899 Other long term (current) drug therapy
CPT/HCPCS: 36415; 74177; 80053; 80307; 82010; 83605; 83690; 84484; 85025; 96361; 96365; 96375; J2405; J2550; Q9967